=== PATIENT | male | born 1945 | race Caucasian/White ===

== ENCOUNTER 2020-06-01 09:36 | Outpatient (CLI) | payer OTHER, SELFPAY ==
--- NOTE | 2020-06-01 09:45 | ECG_ITS ---
Measurements Intervals [place] Rate: 68 P: 55 IA: 170 QRS: 12 QRSD: 103 T: -10 QT: 321 QTc: 341 Interpretive Statements SINUS RHYTHM BORDERLINE ST-T WAVE ABNORMALITY- INFERIOR LEADS BASELINE ARTIFACT- I, II, AVR, AVL, AVF, V4 BORDERLINE ECG Electronically Signed On 06-01-2020 10:02:58 CDT by Bk Cordero D.O.
== END 2020-06-01 09:37 | disposition home or self-care (01) ==
PROVIDERS: PCP Internal Medicine; Visit Provider Urology
DX: Z01.818 Encounter for other preprocedural examination (principal); I10 Essential (primary) hypertension; R94.31 Abnormal electrocardiogram [ECG] [EKG]
CPT/HCPCS: 93005

== ENCOUNTER → 2020-06-05 00:55 | Outpatient (CLI) | payer OTHER, SELFPAY ==
[2020-06-05 20:23] LABS: SARS-CoV-2 RNA PCR Negative
== END ==
PROVIDERS: PCP Internal Medicine; Visit Provider Urology
DX: Z01.812 Encounter for preprocedural laboratory examination (principal); Z20.822 Contact with and (suspected) exposure to COVID-19
CPT/HCPCS: C9803; U0003; U0005

== ENCOUNTER 2020-06-08 01:50 | Day surgery (SDC) | payer OTHER, SELFPAY ==
[2020-05-31 14:47] VITALS: BMI 30.3
[2020-06-08] VITALS (7 sets, daily range): BP systolic 102–138; BP diastolic 60–68; PULSE 59–70; RESP 14–16; TEMP 36.3; O2SAT 96
[2020-06-08] MEDS: LACTATED RINGERS 1,000 ML 30 ML IV CONT (09:48)
--- NOTE | 2020-06-08 10:07 | P.PNAN_ITS ---
Anes - Initial Pre Proc Eval Procedure: Operation Date: 06/08/20 11:15 Proposed Procedures p Cystoscopy, Urethral Dilatation - Delonte Gates MD Date/Time: 06/08/20 10:07 Surgeon: Delonte Gates MD Pre Op Diagnosis: bulbous urethral stricture Patient Data Age: 75 Gender: M Height: 5 ft 5 in Weight: 83.3 kg Last Vital Signs Temp 36.3 C L 06/08/20 09:49 Pulse 70 06/08/20 09:49 Resp 16 06/08/20 09:49 BP 117/60 06/08/20 09:49 Pulse Ox 96 06/08/20 09:49 Allergies Allergy/AdvReac Type Severity Reaction Status Date / Time No Known Allergies Allergy Unverified 06/08/20 09:34 Home Medications Medication Instructions Recorded Confirmed Type allopurinol 200 mg HS 05/31/20 06/08/20 History cetirizine [Zyrtec] 10 mg PO DAILY PRN 05/31/20 06/08/20 History naproxen 250 mg PO BID PRN 05/31/20 06/08/20 History nifedipine 30 mg PO HS 05/31/20 06/08/20 History simvastatin 40 mg HS 05/31/20 06/08/20 History Patient hx anesthesia problems: none Family hx anesthesia problems: none [facility] Past Medical History Medical History (Updated 06/08/20 @ 10:07 by Reyes Chang MD) HTN (hypertension) Hyperlipidemia Overweight (BMI 25.0-29.9) Surgical History Surgical History (Updated 06/08/20 @ 10:07 by Reyes Chang MD) H/O prostatectomy Social History Social History Smoking status: Never smoker Second hand tobacco smoke exposure: No Alcohol intake: current Drinks per week: 14 Substance use: never Substance use type: does not use Living arrangements: with family Spiritual care concerns: No Anes - Eval Final PreProcedure Day of Procedure 06/08/20 10:07 Patient weight: overweight Heart: regular rate and rhythm Lungs: clear to auscultation Airway: Mallampati scale class II Neurological: alert and oriented Last oral intake: >/= 8 hours ASA classification: II Emergent: no Anesthetic plan: proceed Anesthesia type and monitoring: general GIVS and standard monitoring Informed Consent: The patient's anesthetic plan and its attendant risks and benefits were discussed with the patient/family/POA. Questions were solicited and answers provided to the satisfaction of the patient/family/POA.
--- NOTE | 2020-06-08 10:18 | WPDHPUPDATE1 ---
History and Physical Update Update Date/Time: 06/08/20 10:18 History and Physical has been reviewed, including an updated exam of the patient. There are NO changes in the patient's condition. Risks, benefits, and alternatives have been discussed and questions answered. Patient agrees to proceed with procedure.
[2020-06-08] MEDS: ceFAZolin 2 GM/D5W 50 ML 2 GM/50 ML BAG IVPB (10:24)
--- NOTE | 2020-06-08 10:49 | PM.PROC ---
Procedure Note - Detailed Date of procedure: 06/08/20 Pre-op diagnosis: bulbous urethral stricture Post-op diagnosis: same Procedure performed: cystoscopy with urethral dilatation Description of procedure: The patient was brought to the operative suite where he was prepped and draped in a routine sterile fashion while in a dorsal lithotomy position after the uneventful induction of a general LMA anesthetic. Cystoscopy was undertaken with a 16F flexiblecystoscope. There were no urethral strictures. The prostate is surgically absent. The bladder itself was endoscopically normal without foreign body or neoplasm. The bladder mucosa was without hyperemia. There was a single orthotopic ureteral orifice bilaterally with clear efflux of urine. Using the Anil sounds I dilated the urethra and bladder neck from 16-28F F. The bladder was emptied and the patient was taken to the recovery room in good condition. Therw was minimal bleeding and with that, and the simplicity of this procedure, I opted not to leave an indwelling catheter Anesthesia: MAC Surgeon: Delonte Gates MD Estimated blood loss (mL): 0 Drains: No Packing: No Pathology: none sent Complications: No immediate complications Condition: stable Disposition: PACU
[2020-06-08] MEDS: oxyCODONE HCL (*CRX) 5 MG TAB IR PO (12:14)
--- NOTE | 2020-06-08 16:51 | SUR.PHASEII ---
1300 PT WAS UNABLE TO URINATE. BLADDER SCAN REVEALED 700ML URINE. DR ISABEL NOTIFIED. DR GARCIA THEN PUT BARRIENTOS CATHETER IN AND HE INSTRUCTED PT TO TAKE OUT HIS SELF ON FRIDAY MORNING OR COME BY HID OFFICE FRIDAY AND HAVE IT REMOVED.
== END 2020-06-08 13:20 | disposition home or self-care (01) ==
PROVIDERS: PCP Internal Medicine; Visit Provider Urology
PROC: 0T7D8ZZ Dilation of Urethra, Via Natural or Artificial Opening Endoscopic (ICD-10-PCS; CPT 52281; principal; 2020-06-08 11:15)
DX: N35.912 Unspecified bulbous urethral stricture, male (principal); I10 Essential (primary) hypertension; E78.5 Hyperlipidemia, unspecified
CPT/HCPCS: 52281; 93005; A9270; C9803; J0690; J2250; J2704; J3010; J7120; U0003; U0005

== ENCOUNTER 2023-01-10 00:57 | Day surgery (SDC) | payer OTHER, SELFPAY ==
[2022-12-31 13:33] VITALS: BMI 29.9
--- NOTE | 2023-01-09 19:38 | PM.HPGS ---
History of Present Illness History of Present Illness Consent: Risks, benefits, and alternatives have been discussed and questions answered. Patient agrees to proceed with procedure. Chief complaint: familiy hx colon cancer Narrative: Eduardo Cervantes Jr. is a 77 year old male who is referred for colon cancer screening.His mother had colon cancer. Review of Systems Review of Systems: All systems reviewed & are unremarkable except as noted in HPI and below PMFSH Past Medical History Medical History HTN (hypertension) Hyperlipidemia Overweight (BMI 25.0-29.9) Surgical History Surgical History H/O prostatectomy Social History Social History Smoking status: Never smoker Second hand tobacco smoke exposure: No Alcohol intake: current Drinks per week: 14 Substance use: never Substance use type: does not use Living arrangements: with family Spiritual care concerns: No Meds Home Medications and Allergies Home Medications Medication Instructions Recorded Confirmed Type allopurinol 100 mg tablet 200 mg HS 05/31/20 12/31/22 History cetirizine 10 mg capsule (Zyrtec) 10 mg PO DAILY PRN SEASONAL 05/31/20 01/10/23 History ALLERGIES naproxen 250 mg tablet 250 mg PO BID PRN Pain 05/31/20 12/31/22 History nifedipine 30 mg tablet,extended 30 mg PO HS 05/31/20 12/31/22 History release 24 hr simvastatin 40 mg tablet 40 mg HS 05/31/20 12/31/22 History oxybutynin chloride 5 mg 5 mg PO DAILY PRN urinary urgency 12/31/22 12/31/22 History tablet,extended release 24 hr tadalafil 5 mg tablet 5 mg PO DAILY 12/31/22 01/10/23 History tamsulosin 0.4 mg capsule 0.4 mg PO DAILY 12/31/22 12/31/22 History Allergies Allergy/AdvReac Type Severity Reaction Status Date / Time No Known Allergies Allergy Verified 12/31/22 13:29 Exam Resp: Auscultation: clear to auscultation bilaterally Cardio: Rate: regular rate Rhythm: regular rhythm GI: GI Palp: Yes Soft to palpation and No Tenderness to palpation present (GI) Assessment and Plan Assessment and plan (1) Colon cancer screening: Code(s): Z12.11 - Encounter for screening for malignant neoplasm of colon Status: Acute Assessment and Plan: Colonoscopy with possible biopsy or polypectomy or cautery or injection of substances.
[2023-01-10 11:38] VITALS: BP 143/73; PULSE 69; RESP 18; TEMP 36.2; O2SAT 97
[2023-01-10] MEDS: LACTATED RINGERS 1,000 ML 150 ML IV CONT (11:41)
--- NOTE | 2023-01-10 12:27 | P.PNAN_ITS ---
Anes - Initial Pre Proc Eval Procedure: Operation Date: 01/10/23 13:00 Proposed Procedures p Colonoscopy - Sunil Duncan MD Date/Time: 01/10/23 12:27 Surgeon: Sunil Duncan MD Pre Op Diagnosis: rosana hx colon cancer Patient Data Age: 77 Gender: M Height: 1.68 m Weight: 83.4 kg Last Vital Signs Temp 97.1 F L 01/10/23 11:38 Pulse 69 01/10/23 11:38 Resp 18 01/10/23 11:38 BP 143/73 H 01/10/23 11:38 Pulse Ox 97 01/10/23 11:38 O2 Del Method Room Air 01/10/23 11:38 Allergies Allergy/AdvReac Type Severity Reaction Status Date / Time No Known Allergies Allergy Verified 12/31/22 13:29 Home Medications Medication Instructions Recorded Confirmed Type allopurinol 100 mg tablet 200 mg HS 05/31/20 12/31/22 History cetirizine 10 mg capsule (Zyrtec) 10 mg PO DAILY PRN SEASONAL 05/31/20 01/10/23 History ALLERGIES naproxen 250 mg tablet 250 mg PO BID PRN Pain 05/31/20 12/31/22 History nifedipine 30 mg tablet,extended 30 mg PO HS 05/31/20 12/31/22 History release 24 hr simvastatin 40 mg tablet 40 mg HS 05/31/20 12/31/22 History oxybutynin chloride 5 mg 5 mg PO DAILY PRN urinary urgency 12/31/22 12/31/22 History tablet,extended release 24 hr tadalafil 5 mg tablet 5 mg PO DAILY 12/31/22 01/10/23 History tamsulosin 0.4 mg capsule 0.4 mg PO DAILY 12/31/22 12/31/22 History Patient hx anesthesia problems: none Family hx anesthesia problems: none Results Review: All pre-operative results and documents have been reviewed as part of the pre- operative evaluation. [facility] Past Medical History Medical History (Updated 01/09/23 @ 19:39 by Sunil Duncan MD) HTN (hypertension) Hyperlipidemia Overweight (BMI 25.0-29.9) Surgical History Surgical History (Updated 06/08/20 @ 10:07 by Reyes Chang MD) H/O prostatectomy Social History Social History Smoking status: Never smoker Second hand tobacco smoke exposure: No Alcohol intake: current Drinks per week: 14 Substance use: never Substance use type: does not use Living arrangements: with family Spiritual care concerns: No Anes - Eval Final PreProcedure Day of Procedure 01/10/23 12:27 Patient weight: normal Heart: regular rate and rhythm Lungs: clear to auscultation Airway: Mallampati scale class II Neurological: alert and oriented Last oral intake: >/= 8 hours ASA classification: III Emergent: no Anesthetic plan: proceed Anesthesia type and monitoring: general GIVS and standard monitoring Results Review: All pre-operative results and documents have been reviewed as part of the pre- operative evaluation. Informed Consent: The patient's anesthetic plan and its attendant risks and benefits were discussed with the patient/family/POA. Questions were solicited and answers provided to the satisfaction of the patient/family/POA.
[2023-01-10 12:58] VITALS: BP 132/71; PULSE 68; RESP 16; O2SAT 95
[2023-01-10 13:08] VITALS: BP 123/99; PULSE 60; RESP 18; O2SAT 97
[2023-01-10 13:18] VITALS: BP 125/78; PULSE 62; RESP 18; O2SAT 97
== END 2023-01-10 13:25 | disposition home or self-care (01) ==
PROVIDERS: PCP Internal Medicine; Visit Provider Internal Medicine Gastroenterology
PROC: 0DJD8ZZ Inspection of Lower Intestinal Tract, Via Natural or Artificial Opening Endoscopic (ICD-10-PCS; CPT 45378; principal; 2023-01-10 13:00)
DX: Z12.11 Encounter for screening for malignant neoplasm of colon (principal); K57.30 Diverticulosis of large intestine without perforation or abscess without bleeding; K62.1 Rectal polyp; K63.5 Polyp of colon; K64.8 Other hemorrhoids; Z80.0 Family history of malignant neoplasm of digestive organs; I10 Essential (primary) hypertension; E78.5 Hyperlipidemia, unspecified
CPT/HCPCS: 45380; 45385; 88305; J2704; J7120